=== PATIENT | male | born 1960 | race Asian ===

== ENCOUNTER 2021-02-01 13:49 | Emergency (ER) | payer BC ==
[~2021-02-01] VITALS: Ht 177.8 cm; Wt 79.5 kg
[2021-02-01 13:56] VITALS: BP 143/85
[2021-02-01] MEDS ORDERED: METF-960 PO (13:58)
[2021-02-01] MEDS ORDERED: ATOR10TA84 PO (13:58)
== END 2021-02-01 14:51 | disposition home or self-care (01) ==
LOC: EMS 13:55
DX: H60.92 Unspecified otitis externa, left ear (principal); E11.65 Type 2 diabetes mellitus with hyperglycemia; E78.00 Pure hypercholesterolemia, unspecified; F17.210 Nicotine dependence, cigarettes, uncomplicated; Z79.84 Long term (current) use of oral hypoglycemic drugs
CPT/HCPCS: 82962; 99283

== ENCOUNTER 2025-03-11 09:42 | Emergency (ER) | payer BC ==
[~2025-03-11] VITALS: Ht 167.6 cm; Wt 77.3 kg
[~2025-03-11 09:42] MED LIST: ATOR10TA PO; METF-1211 PO
[2025-03-11 09:49] VITALS: BP 116/80; PULSE 88; RESP 18; TEMP 98.4; O2SAT 99
[2025-03-11] MEDS ORDERED: LOSA-382 PO (10:01)
[2025-03-11] MEDS ORDERED: ATOR40TA28 PO (10:01)
[2025-03-11] MEDS ORDERED: CEPH-558 PO (11:00)
[2025-03-11] MEDS: CEPHALEXIN MONOHYDRATE 500 MG CAPSULE PO ONE (11:00)
[2025-03-11] MEDS ORDERED: SULF-261 PO (11:00)
[2025-03-11] MEDS ORDERED: VALA100026 PO (11:00)
[2025-03-11] MEDS: SULFAMETHOX/TRIMETH DS 800-160 MG/TABLET PO ONE (11:01)
== END 2025-03-11 11:09 | disposition home or self-care (01) ==
LOC: EMS 09:42
DX: B02.9 Zoster without complications (principal); E11.9 Type 2 diabetes mellitus without complications; E78.00 Pure hypercholesterolemia, unspecified; F17.210 Nicotine dependence, cigarettes, uncomplicated; I10 Essential (primary) hypertension; K62.89 Other specified diseases of anus and rectum; R21 Rash and other nonspecific skin eruption; L03.90 Cellulitis, unspecified; M53.3 Sacrococcygeal disorders, not elsewhere classified; Z79.899 Other long term (current) drug therapy
CPT/HCPCS: 82962; 99284

== ENCOUNTER 2025-04-17 13:54 | Emergency (ER) | payer BC ==
[~2025-04-17] VITALS: Ht 167.6 cm; Wt 68.2 kg
[~2025-04-17 13:54] MED LIST changes: -ATOR10TA PO; +ATOR40TA28 PO; +CEPH-558 PO; +LOSA-382 PO; +SULF1TAB94 PO; +VALA100026 PO
[2025-04-17 13:55] VITALS: TEMP 98
[2025-04-17] MEDS: KETOROLAC TROMETHAMINE 30 MG/ML VIAL IM ONE (14:45)
[2025-04-17] MEDS ORDERED: IBUP-1492 PO (15:21)
[2025-04-17] MEDS ORDERED: [UNRECOGNIZED DRUG - CODE] PO (15:21)
[2025-04-17 16:33] VITALS: BP 134/77; PULSE 76; RESP 18; O2SAT 99
== END 2025-04-17 16:42 | disposition home or self-care (01) ==
LOC: EMS 14:10
DX: S43.51XA Sprain of right acromioclavicular joint, initial encounter (principal); E11.9 Type 2 diabetes mellitus without complications; E78.00 Pure hypercholesterolemia, unspecified; I10 Essential (primary) hypertension; F17.210 Nicotine dependence, cigarettes, uncomplicated; Z79.899 Other long term (current) drug therapy; W06.XXXA Fall from bed, initial encounter; Y93.89 Activity, other specified; Y92.89 Other specified places as the place of occurrence of the external cause; Y99.8 Other external cause status
CPT/HCPCS: 99283; 73030; 96372; J1885